=== PATIENT | female | born 1975 | race Caucasian/White ===

== ENCOUNTER → 2018-08-02 08:26 | Outpatient (CLI) | payer OTHER, SELFPAY ==
--- NOTE | 2018-08-02 08:27 | DI.MG.S_ITS ---
BILATERAL DIGITAL DIAGNOSTIC MAMMOGRAM 3D/2D: 08/02/2018 CLINICAL: Breast pain. Baseline. No prior exams were available for comparison. There are scattered fibroglandular elements in both breasts. No mammographic abnormalities in the left axilla or 7-8 o'clock area to correspond to patient's areas of breast pain. No significant masses, calcifications, or other findings are seen in either breast. IMPRESSION: INCOMPLETE: NEEDS ADDITIONAL IMAGING EVALUATION Negative mammograms without findings to correspond to patient's areas of left breast pain. Further evaluation of left breast symptoms with ultrasound is recommended and was immediately performed following this exam. This exam was interpreted at Station ID: [id number]. NOTE: For mammograms, a report in lay terms will be sent to the patient. Approximately 15% of breast malignancies will not be visualized mammographically. In the management of a palpable breast mass, a negative mammogram must not discourage biopsy of a clinically suspicious lesion. Electronically Signed By: Geraldine godoy/:08/02/2018 09:56:20 ACR BI-RADS Category 0: Incomplete [id number]
--- NOTE | 2018-08-02 08:27 | DI.US.S_ITS ---
LIMITED ULTRASOUND OF LEFT BREAST AND AXILLA: 08/02/2018 CLINICAL: Focal left breast pain. Comparison is made to exam dated: 08/02/2018 [facility]. Ultrasound of the left breast 7-8 o'clock, and axilla regions was performed. No abnormalities were seen sonographically in the left breast or the left axilla. IMPRESSION: NEGATIVE There is no sonographic evidence of malignancy. No mammographic or sonographic findings to explain patient's areas of pain. Clinical followup suggested if symptoms worsen. A 1 year screening mammogram is recommended. Findings and recommendations conveyed to the patient. This exam was interpreted at Station ID: [id number]. Electronically Signed By: Geraldine godoy/:08/02/2018 09:58:21 letter sent: Normal Exam Ultrasound BI-RADS: 1 Negative
== END ==
PROVIDERS: PCP Nurse Practitioner; Visit Provider Nurse Practitioner
DX: R92.8 Other abnormal and inconclusive findings on diagnostic imaging of breast (principal); N64.4 Mastodynia
CPT/HCPCS: 76642; 77066; G0279

== ENCOUNTER → 2019-01-25 10:49 | Outpatient (CLI) | payer OTHER, SELFPAY ==
--- NOTE | 2019-01-25 10:52 | DI.RAD.S_ITS ---
PROCEDURE: XR CHEST 2V INDICATIONS: cough, wheezing TECHNIQUE: 2 views of the chest were acquired. COMPARISON: None. FINDINGS: Surgical changes and devices: None. Lungs and pleura: Peribronchial cuffing and bilateral perihilar interstitial infiltrates are consistent with reactive airways versus viral pneumonitis versus mycoplasma. No airspace consolidation. No pleural effusions or pneumothorax. Mediastinum: Mediastinal contours are normal. Heart size is normal. Bones and chest wall: No suspicious bony abnormalities. Soft tissues appear unremarkable. IMPRESSION: Reactive airways versus viral pneumonitis versus mycoplasma. Dictated by: Goran Mao M.D. on 01/25/2019 at 11:13 Approved by: Goran Mao M.D. on 01/25/2019 at 11:13
== END ==
PROVIDERS: PCP Nurse Practitioner; Visit Provider Physician Assistant
DX: R05 Cough (principal); R06.2 Wheezing
CPT/HCPCS: 71046

== ENCOUNTER → 2020-08-01 09:50 | Outpatient (CLI) | payer OTHER, SELFPAY ==
[2020-08-01] MEDS: COVID-19 VACC #1, MRNA(MOD) 100 MCG/0.5 ML VIAL IM (10:00)
== END ==
PROVIDERS: PCP Nurse Practitioner; Visit Provider Internal Medicine
DX: Z23 Encounter for immunization (principal)
CPT/HCPCS: 0011A; 91301

== ENCOUNTER → 2020-08-29 09:53 | Outpatient (CLI) | payer OTHER, SELFPAY ==
[2020-08-29] MEDS: COVID-19 VACC #2, MRNA(MOD) 100 MCG/0.5 ML VIAL IM (09:59)
== END ==
PROVIDERS: PCP Nurse Practitioner; Visit Provider Internal Medicine
DX: Z23 Encounter for immunization (principal)
CPT/HCPCS: 0012A; 91301

== ENCOUNTER → 2022-05-08 13:24 | Outpatient (CLI) | payer OTHER, SELFPAY ==
--- NOTE | 2022-05-08 13:25 | DI.US.S_ITS ---
PROCEDURE: US SOFT TISSUE HEAD AND NECK INDICATIONS: RT PALPABLE AT TRAPEZIUS MUSCLE ?LUMP VS MUSCLE ABNORMALITY TECHNIQUE: Real-time scanning was performed of the neck region of interest, with image documentation. COMPARISON: None. FINDINGS: There is no sonographic evidence for a soft tissue abnormality in the area palpated by the patient. IMPRESSION: No soft tissue abnormality visualized in the area palpated by the patient under sonography. If further characterization is warranted, MRI of the region could be performed. Dictated by: Lavern Villalobos M.D. on 05/08/2022 at 16:39 Approved by: Lavern Villalobos M.D. on 05/08/2022 at 16:42
== END ==
PROVIDERS: PCP Nurse Practitioner; Referring Provider Nurse Practitioner; Visit Provider Nurse Practitioner
DX: R22.1 Localized swelling, mass and lump, neck (principal); M62.9 Disorder of muscle, unspecified
CPT/HCPCS: 76536

== ENCOUNTER → 2022-05-12 14:49 | Outpatient (CLI) | payer OTHER, SELFPAY ==
--- NOTE | 2022-05-12 14:51 | DI.MG.S_ITS ---
BILATERAL DIGITAL SCREENING MAMMOGRAM 3D/2D WITH CAD: 05/12/2022 CLINICAL: Routine screening. Family history of breast cancer. Comparison is made to exam dated: 08/02/2018 mammogram - [facility]. There are scattered areas of fibroglandular density in both breasts (category b / 25%-50% glandular tissue). Current study was also evaluated with a Computer Aided Detection (CAD) system. No significant masses, calcifications, or other findings are seen in either breast. There has been no significant interval change. IMPRESSION: NEGATIVE There is no mammographic evidence of malignancy. A 1 year screening mammogram is recommended. Based on the Tyrer Cuzick model (a risk assessment model) the patient's lifetime risk is 4.1% and her 10 year risk is 0.7%. According to the ACR, ACS, and NCCN guidelines, an annual breast MRI exam along with mammogram is recommended if the patient's lifetime risk is 20% or greater. This exam was interpreted at Station ID: [id number]. NOTE: For mammograms, a report in lay terms will be sent to the patient. Approximately 15% of breast malignancies will not be visualized mammographically. In the management of a palpable breast mass, a negative mammogram must not discourage biopsy of a clinically suspicious lesion. Electronically Signed By: Slim nava/karla:05/12/2022 17:50:12 letter sent: Normal Exam ACR BI-RADS Category 1: Negative [id number]
== END ==
PROVIDERS: PCP Nurse Practitioner; Referring Provider Nurse Practitioner; Visit Provider Nurse Practitioner
DX: Z12.31 Encounter for screening mammogram for malignant neoplasm of breast (principal); Z80.3 Family history of malignant neoplasm of breast
CPT/HCPCS: 77063; 77067